=== PATIENT | male | born 1975 | race Caucasian/White ===

== ENCOUNTER 2023-09-10 21:48 | Emergency (ER) | payer BC, SELFPAY ==
[2023-09-10 21:57] VITALS: BP 166/106
--- NOTE | 2023-09-10 22:24 | ED.GENMED ---
History of Present Illness
General
Chief Complaint: Skin Surface Trauma
Source: patient
Time Seen by Provider: 09/10/23 22:24
Travel History
Have you had any contact with someone who has COVID-19?: No
Do you have any symptoms of coronavirus? Fever > 100 degrees, chills, cough, shortness of breath, sore throat, loss of taste or smell, muscle aches, or headache?: No
History of Present Illness
History of Present Illness:
48-year-old male presenting to the emergency department for evaluation following accidentally hitting his forehead onto a door causing him to sustain a superficial vertically oriented laceration to the mid forehead. No LOC, no vomiting, no
anticoagulants
Past History
Past History
ED Past Medical History: HTN and Other (Sleep apnea)
ED Past Surgical History: Other (Repair of a deviated septum)
Social History
Tobacco: Non-smoker
Alcohol: Occasional
Drug: None
Personal:
Living: with family
Employment: Employed
Review of Systems
Review of Systems
All Other Systems: ROS reviewed and negative except as documented in HPI and ROS
Phy Exam
Physical Exam
Physical Exam:
GENERAL: Alert , in no apparent distress
EYE: conjunctiva clear
Head: Very superficial 1.25 cm vertically oriented laceration to the mid forehead
NECK: Supple,
ENT: mmm.
LUNGS: no acute respiratory distress
NEUROLOGICAL: Alert and oriented
SKIN: Warm and dry, skin intact.
MUSCULOSKELETAL: well perfused.
PSYCH: Normal and appropriate interaction.
Scores
Heart Failure Risk
Heart Failure Risk Score: Not Applicable
Heart Score for Chest Pain Patients
STEMI patient?: Not applicable
Withdrawal Assessment of Alcohol
Withdrawal Assessment Completed?: Not applicable
Course
Vital Signs
Initial and Last Documented VS:
Initial Vital Signs
Temp Pulse Resp BP Pulse Ox
98.1 F 70 15 166/106 98
09/10/23 21:57 09/10/23 21:57 09/10/23 21:57 09/10/23 21:57 09/10/23 21:57
Last Documented Vital Signs
Temp Pulse Resp BP Pulse Ox
98.1 F 70 15 166/106 98
09/10/23 21:57 09/10/23 21:57 09/10/23 21:57 09/10/23 21:57 09/10/23 21:57
Procedures
Laceration Closure
Middle Forehead:
Status of Wound: clean
Size of Wound in cm: 1.25
Description of Wound Edges: sharp
Type of Closure: Dermabond-skin glue
MDM/Problems Addressed
MDM/Problems Addressed:
Patient presenting the emergency department for evaluation of superficial laceration to the mid forehead. Laceration was Dermabond it without any difficulty. Patient advised on wound care. Return precautions discussed but otherwise stable for
discharge home.
*Pulse Oximetry
Patient hypoxic: no
*Critical Care Note
Total Time (30-74mins, 75-104mins- exclusive of procedures): Not Applicable
ED Attending Note
-
Portions of this chart may have been created with voice recognition software.� Occasional wrong word or��sound alike� substitutions may have occurred due to the inherent limitations of voice recognition software.
Discharge Plan
Departure
Patient Disposition: Home (Routine Discharge)
Date of Disposition: 09/10/23
Time of Disposition: 22:24
Patient with high blood pressure during this ER visit?: Yes
Discharge Problem:
Forehead laceration
Instructions: Laceration Repair With Glue (DC)
Prescriptions:
No Action
amlodipine 5 mg Tablet
5 mg PO DAILY
multivitamin Tablet
1 tab PO DAILY
aspirin 325 mg Capsule
325 mg PO DAILY
oxycodone 5 mg Tablet
5 mg PO Q4HPRN PRN (Reason: moderate pain) Qty: 7 0RF
Interventions
Interventions:
*Risk Screen - Suicide Last Done: 09/10/23 21:57
*General Assessment Last Done: 09/10/23 21:57
*Neglect/Abuse Screening Last Done: 09/10/23 21:57
*ED COVID-19 Vaccine History Last Done: 09/10/23 21:57
*Nursing Disposition Last Done: 09/10/23 22:28
ED-Skin Assessment Last Done: 09/10/23 22:28
Discharge Date and Time
Print Language: SAMI
== END 2023-09-10 22:30 | disposition home or self-care (01) ==
LOC: EMR 21:48
PROVIDERS: EMERGENCY PHYSICIAN Emergency Medicine; FAMILY PHYSICIAN Family Medicine
DX: S01.81XA Laceration without foreign body of other part of head, initial encounter (principal); W22.09XA Striking against other stationary object, initial encounter; I10 Essential (primary) hypertension
CPT/HCPCS: 99282; 12011

== ENCOUNTER → 2024-03-09 15:30 | Outpatient (REF) | payer BC, SELFPAY | LOC: RAD 15:30 | PROVIDERS: ATTENDING PHYSICIAN Nurse Practitioner Family | DX: M79.89 Other specified soft tissue disorders (principal) | CPT/HCPCS: 93971 ==

== ENCOUNTER → 2024-04-07 06:23 | Day surgery (SDC) | payer BC, SELFPAY | LOC: GI 06:23 | PROVIDERS: ATTENDING PHYSICIAN Student in an Organized Health Care Education/Training Program | DX: K64.0 First degree hemorrhoids (principal); K62.5 Hemorrhage of anus and rectum; K52.89 Other specified noninfective gastroenteritis and colitis | CPT/HCPCS: 45380; 88305 ==

== ENCOUNTER 2024-11-25 06:27 | Day surgery (SDC) | payer BC, SELFPAY | END 2024-11-25 14:20 | disposition home or self-care (01) | LOC: GI 06:27 | PROVIDERS: ATTENDING PHYSICIAN Student in an Organized Health Care Education/Training Program; FAMILY PHYSICIAN Family Medicine | DX: K62.5 Hemorrhage of anus and rectum (principal); Q43.8 Other specified congenital malformations of intestine; K52.9 Noninfective gastroenteritis and colitis, unspecified; K57.30 Diverticulosis of large intestine without perforation or abscess without bleeding; K62.89 Other specified diseases of anus and rectum; K63.5 Polyp of colon | CPT/HCPCS: 45380; 88305 ==

== ENCOUNTER → 2025-01-31 08:09 | Outpatient (REF) | payer BC, SELFPAY | LOC: RAD 08:09 | PROVIDERS: ATTENDING PHYSICIAN Surgery Vascular Surgery; FAMILY PHYSICIAN Family Medicine | DX: I87.2 Venous insufficiency (chronic) (peripheral) (principal) | CPT/HCPCS: 93971 ==

== ENCOUNTER → 2025-02-16 11:38 | Outpatient (REF) | payer BC, SELFPAY | LOC: MRI 3T 11:38 | PROVIDERS: ATTENDING PHYSICIAN Student in an Organized Health Care Education/Training Program; FAMILY PHYSICIAN Family Medicine | DX: K52.3 Indeterminate colitis (principal) | CPT/HCPCS: 72197; 74183; A9575 ==

== ENCOUNTER 2025-03-10 08:38 | Day surgery (SDC) | payer BC, SELFPAY ==
[2025-03-01 09:46] VITALS: BMI 33.9
[2025-03-01 10:12] LABS: Hematocrit 45.9 % (39.0-52.0); Hemoglobin 15.7 g/dL (13.0-18.0); Mean Corp Hgb Conc. 34.2 g/dL (33.0-37.0); Mean Corpuscular Volume 90.5 fL (80.0-94.0); Nucleated Red Blood Cells % 0 % (-); Platelet Count 241 10^3/uL (130-400); Red Cell Dist. Width 13.2 % (11.5-14.5)
[2025-03-01 10:23] LABS: INR 0.95; PT 13.1 Sec (11.4-14.6)
[2025-03-01 10:24] LABS: APTT 29.6 Sec (23.4-35.0)
[2025-03-01 10:49] LABS: Blood Urea Nitrogen 16 mg/dl (9-20); Calcium 9.3 mg/dl (8.4-10.2); Carbon Dioxide 28 mmol/L (22-30); Chloride 106 mmol/L (98-107); Estimated Creatinine Clearance > 125 ml/min; Glucose 91 mg/dl (70-99); Potassium 4.8 mmol/L (3.5-5.1); Sodium 140 mmol/L (135-145); eGFR > 60.00
[2025-03-10] VITALS (11 sets, daily range): BP systolic 13–132; BP diastolic 75–96; BMI 34.1
[2025-03-10] MEDS: PERIDEX 0.12% ORAL RINSE 15 ML PO (09:24)
[2025-03-10] MEDS: NSS 500 IV (09:24)
[2025-03-10] MEDS: BACTROBAN NASAL 1 GRAM NASAL (09:24)
--- NOTE | 2025-03-10 09:42 | W.SUR.PREOP ---
Pre-Operative Surgical Note
-
I have examined this patient prior to the performance of the scheduled procedure.
The patient's condition is unchanged from the time of the current History and
Physical and the patient is able to undergo the scheduled procedure.
--- NOTE | 2025-03-10 11:59 | OR.RPT ---
Operative Report
Operative Report
Date of Operation: 03/10/2025
Pre Op Diagnosis: Symptomatic venous insufficiency, left lower extremity
Post Op Diagnosis: Symptomatic venous insufficiency, left lower extremity
Procedure:
1. Radiofrequency endovenous ablation of left great saphenous vein (mid calf puncture site)
2. Radiofrequency endovenous ablation of left anterior accessory saphenous vein (thigh puncture site)
Surgeon: Joaquin Solomon III, MD
Dairy Nutrition Consultant: Candi Griffith MD PGY2
Anesthesia: Sedation/local
Complications: None
Estimated Blood Loss: Minimal
History and Indications for Procedure: 50-year-old with symptomatic venous insufficiency of the left lower extremity. We brought him to the operating room for endovenous ablation.
Procedure in Detail: Joesph Klein was correctly identified and placed supine on the operating table. After adequate induction of anesthesia the left leg was frog-legged and the table placed into a reverse Trendelenburg position. The left leg
was prepped and draped in the usual sterile fashion. A time out procedure was performed with the nursing and anesthesia staff confirming the patient's identity as well as the nature and laterality of the procedure.
The left great saphenous vein and the left anterior accessory saphenous vein were identified using ultrasound guidance. The great saphenous vein was visualized from the mid calf to the saphenofemoral junction. The anterior accessory saphenous vein
was visualized from the mid thigh to the junction. An appropriate site for access was identified at the mid calf for the great saphenous vein in the mid thigh for the anterior accessory saphenous vein. Local anesthesia was infiltrated into the
proposed puncture sites. The left great saphenous vein was accessed with a micropuncture needle under ultrasound guidance and the 7 Beninese sheath was placed. The left anterior accessory saphenous vein was accessed under ultrasound guidance with a
micropuncture needle and another 7 Beninese sheath was placed. Under direct ultrasound guidance the 60 cm length /3 cm tip radiofrequency ablation catheter was advanced through the anterior accessory saphenous vein towards the saphenofemoral
junction. Using a real-time direct ultrasound measurement the tip of the catheter was positioned 2.5 cm from the saphenofemoral junction. The position of the catheter was then externally marked using the white plastic doughnut on the catheter at
the sheath exit site. Under direct ultrasound guidance the 60 cm length/7 cm tip radiofrequency ablation catheter was advanced through the great saphenous vein towards the saphenofemoral junction. Using a real-time direct ultrasound measurement
the tip of this catheter was positioned 2.5 cm from the saphenofemoral junction. The position of the catheter was then externally marked using the white plastic donut on the catheter at the sheath exit site. Using ultrasound guidance Tumescent
solution was then infiltrated circumferentially around both the left great saphenous vein and the left anterior accessory saphenous vein from the sheath insertion sites to the tips of the catheters near the saphenofemoral junctions. At this point
the table was flattened out. The anterior accessory saphenous vein was then ablated using 2 treatment cycles at each segment. Once completed the sheath and catheter were removed. Direct manual pressure was held on the puncture site and hemostasis
was achieved. The left great saphenous vein was then ablated using 2 treatment cycles at each segment. Once completed the sheath and catheter were removed. Direct manual pressure was held on the puncture sites and hemostasis was achieved.
The patient's leg was cleaned. Sterile dressings were applied to each sheath access site. The left leg was then wrapped with an Akil wrap from the toes to the proximal thigh. The patient tolerated the procedure well was taken to the recovery room
in good condition.
Attestation: I was present and responsible for the entire procedure
Signed:
Joaquin Solomon III, MD
Vascular Surgery
[facility]
== END 2025-03-10 13:35 | disposition home or self-care (01) ==
LOC: CATH 08:38
PROVIDERS: ATTENDING PHYSICIAN Surgery Vascular Surgery; PRIMARYCARE PHYSICIAN Family Medicine
DX: I87.2 Venous insufficiency (chronic) (peripheral) (principal)
CPT/HCPCS: 36475; 36476; 36415; 80048; 85025; 85610; 85730; 93005

== ENCOUNTER → 2025-03-13 13:05 | Outpatient (REF) | payer BC, SELFPAY | LOC: HWRAD 13:05 | PROVIDERS: ATTENDING PHYSICIAN Surgery Vascular Surgery; FAMILY PHYSICIAN Family Medicine | DX: I87.2 Venous insufficiency (chronic) (peripheral) (principal) | CPT/HCPCS: 93971 ==